=== PATIENT | male | born 1935 | race Two or more races ===

== ENCOUNTER 2019-02-27 08:26 | Outpatient (CLI) | payer OTHER | END 2019-02-27 08:31 | disposition home or self-care (01) | LOC: RAD 08:26 | DX: M54.5 Low back pain (principal); S32.008A Other fracture of unspecified lumbar vertebra, initial encounter for closed fracture ==

== ENCOUNTER 2019-03-15 12:00 | Outpatient (CLI) | payer OTHER | END 2019-03-15 12:05 | disposition home or self-care (01) | LOC: NUCLEAR 12:00 → EDBD 13:00 | DX: S32.000S Wedge compression fracture of unspecified lumbar vertebra, sequela (principal); M81.0 Age-related osteoporosis without current pathological fracture ==

== ENCOUNTER 2022-01-09 09:52 | Outpatient (CLI) | payer OTHER | END 2022-01-09 10:11 | disposition home or self-care (01) | LOC: SONOGRAMA 09:52 | PROVIDERS: ATTEND Family Medicine | DX: I12.9 Hypertensive chronic kidney disease with stage 1 through stage 4 chronic kidney disease, or unspecified chronic kidney disease (principal) ==

== ENCOUNTER 2022-01-14 07:29 | Outpatient (CLI) | payer OTHER | END 2022-01-14 07:34 | disposition home or self-care (01) | LOC: RAD 07:29 | PROVIDERS: ATTEND Family Medicine | DX: M54.50 Low back pain, unspecified (principal) ==

== ENCOUNTER 2023-12-22 08:02 | Day surgery (SDC) | payer OTHER ==
[2023-12-19 11:42] LABS: PH,URINE 6.5 (5.0-8.0); URINE APPEARANCE Clear; URINE BILIRRUBIN Negative (NEGATIVE); URINE BLOOD Negative; URINE COLOR Yellow; URINE GLUCOSE Negative (NEGATIVE); URINE LEUKOCYTE Negative; URINE NITRATE Negative; URINE PROTEIN 30 (NEGATIVE)
[2023-12-19 11:47] LABS: URINE BACTERIA 12.5 uL (0.0-1933); URINE EPITHELIAL CELLS 3.7 uL (0.0-38.8); URINE WBC 2.3 uL (0.0-23.2)
[2023-12-19 11:53] LABS: HEMATOCRIT 38.3 % (39.0-48.0); MEAN CELL VOLUME 93.1 fL (80.0-100.00); MEAN CORPUSCULAR HEMOGLOBIN 31.5 pg (27.00-32.0); MEAN CORPUSCULAR HGB CONC 33.9 g/dl (32.0-36.0); PLATELET COUNT 151 K/uL (150-450); RED BLOOD COUNT 4.11 M/uL (4.00-6.00); RED CELL DISTRIBUTION WIDTH 14.9 % (11.5-14.5)
[2023-12-19 12:02] LABS: INR 0.94; PROTHROMBIN TIME 9.9 SECONDS (9.0-11.5)
[2023-12-19 12:07] LABS: ALBUMIN 3.2 gm/dL (3.4-5.0); BILIRUBIN TOTAL 0.86 mg/dL (0.3-1.2); CALCIUM 8.4 mg/dL (8.5-10.1); CREATININE SERUM 1.72 mg/dL (0.70-1.30); GFR 37.63; GLOBULINA 3.9 G/DL (2.4-3.5); POTASSIUM 4.55 mEq/L (3.5-5.1); TOTAL PROTEIN 7.1 gm/dL (6.4-8.2)
[~2023-12-22 08:02] MED LIST: SIMVASTATIN5 MG PO
[2023-12-22] MEDS ORDERED: CEFAZOLIN SODIUM 1,000 MG VIAL ONE (11:42)
[2023-12-22] MEDS ORDERED: CEFAZOLIN SODIUM 1,000 MG VIAL IV ONE ×2 (12:45→14:30)
[2023-12-22] MEDS ORDERED: CEFADROXIL 500 MG CAPSULE PO SCH (14:19)
[2023-12-22] MEDS ORDERED: MEPERIDINE HCL/PF 25 MG/ML VIAL IM PRN (14:30)
[2023-12-22] MEDS ORDERED: PROMETHAZINE HCL 25 MG/ML AMPUL IM PRN (14:30)
[2023-12-22] MEDS ORDERED: TRAM1TAB98 PO (14:31)
[2023-12-22] MEDS ORDERED: DUI500 PO (14:31)
== END 2023-12-22 17:40 | disposition home or self-care (01) ==
LOC: CIR.AMB 08:02
PROVIDERS: ATTEND Orthopaedic Surgery Sports Medicine
DX: S52.021B Displaced fracture of olecranon process without intraarticular extension of right ulna, initial encounter for open fracture type I or II (principal); S52.531B Colles' fracture of right radius, initial encounter for open fracture type I or II
CPT/HCPCS: 24685; 25609; L8699

== ENCOUNTER 2024-05-26 11:10 | Outpatient (CLI) | payer OTHER ==
[~2024-05-26 11:10] MED LIST changes: +DUI500 PO; +TRAM1TAB98 PO
== END 2024-05-26 11:11 | disposition home or self-care (01) ==
LOC: NUCLEAR 11:10
PROVIDERS: ATTEND Family Medicine
DX: M25.562 Pain in left knee (principal); I87.2 Venous insufficiency (chronic) (peripheral)

== ENCOUNTER 2024-05-27 07:45 | Outpatient (CLI) | payer OTHER | END 2024-05-27 07:46 | disposition home or self-care (01) | LOC: NUCLEAR 07:45 | DX: M25.562 Pain in left knee (principal) ==